=== PATIENT | male | born 2000 | race African-American/Black ===

== ENCOUNTER 2023-09-03 19:48 | Emergency (ER) | payer BC ==
[~2023-09-03] VITALS: Ht 172.7 cm; Wt 63.5 kg
[2023-09-03 21:08] VITALS: TEMP 97.6
[2023-09-03] MEDS ORDERED: ONDANSETRON HCL/PF 4 MG/2 ML VIAL ONE (21:49)
[2023-09-03] MEDS ORDERED: PANTOPRAZOLE 40 MG VIAL ONE (21:49)
[2023-09-03] MEDS: IV NS 0.9% 1,000 ML BAG IV ONE (22:00)
[2023-09-03] MEDS: ONDANSETRON HCL/PF 4 MG/2 ML VIAL IVP ONE (22:01)
[2023-09-03] MEDS: PANTOPRAZOLE 40 MG VIAL IV ONE (22:03)
[2023-09-03 22:10] LABS: HEMATOCRIT 44 % (39-51); MEAN CORPUSCULAR HEMOGLOBIN 30 PG (26.0-33.0); MONOCYTES # (AUTO) 0.2 K/uL (0.1-1.30); NEUTROPHILS # (AUTO) 8.4 K/uL (1.8-8.9); RED BLOOD CELL COUNT(AUTO) 4.97 MIL/uL (4.5-6.0)
[2023-09-03 22:25] LABS: ALBUMIN 4.3 g/dL (3.4-5.0); BILIRUBIN,DIRECT 0.1 mg/dL (0.0-0.2); BILIRUBIN,TOTAL 0.6 mg/dL (0.2-1.0); CALCIUM, SERUM 9.9 mg/dL (8.5-10.1); CREATININE 0.9 mg/dL (0.6-1.3); POTASSIUM 3.7 mmol/L (3.5-5.1); TOTAL PROTEIN, SERUM 8.1 g/dL (6.4-8.2)
[2023-09-03 22:34] LABS: INR 1.06 (0.91-1.10); PARTIAL THROMBOPLASTIN TIME 23.9 SEC (24.3-34.3); PROTHROMBIN TIME 11.2 SECS (9.2-11.1)
[2023-09-03 22:48] LABS: BASOPHILS % (AUTO) 0.2 % (0.0-2.0); EOSINOPHILS % (AUTO) 0.1 % (0.0-6.0); LYMPHOCYTES # (AUTO) 0.5 K/uL (0.8-4.8); LYMPHOCYTES % (AUTO) 5.6 % (20.0-44.0); MEAN CORPUSCULAR HGB CONC 34 g/dl (31.0-36.0); MEAN CORPUSCULAR VOLUME 89 fL (80-96); MONOCYTES % (AUTO) 2.5 % (2.0-12.0); NEUTROPHILS % (AUTO) 91.6 % (43.0-81.0); PLATELET COUNT (AUTO) 311 K/uL (150-450); RED CELL DISTRIBUTION WIDTH 12.4 % (11.5-15.0); WHITE BLOOD COUNT (AUTO) 9.2 K/uL (4.3-11.0)
[2023-09-03 23:29] VITALS: BP 110/70; O2SAT 99
== END 2023-09-03 23:29 | disposition home or self-care (01) ==
LOC: ER 19:52
DX: R51.9 Headache, unspecified (principal); R11.2 Nausea with vomiting, unspecified
CPT/HCPCS: 99285; 96374; 70450; 96361; 96375; 85025; 80048; 83690; 80076; 36415; 85730; J2405; J7030; C9113